=== PATIENT | female | born 1970 | race Caucasian/White ===

== ENCOUNTER → 2023-12-23 12:50 | Outpatient (REF) | payer BC, SELFPAY | LOC: HWRAD 12:50 | PROVIDERS: ATTENDING PHYSICIAN Obstetrics & Gynecology; FAMILY PHYSICIAN Nurse Practitioner Primary Care; REFERRING PHYSICIAN Surgery | DX: I89.0 Lymphedema, not elsewhere classified (principal); R10.2 Pelvic and perineal pain; Z80.41 Family history of malignant neoplasm of ovary | CPT/HCPCS: 76536; 76830; 76856 ==

== ENCOUNTER 2024-01-30 06:11 | Day surgery (SDC) | payer BC, SELFPAY ==
[2024-01-29 12:44] VITALS: BMI 49.8
[2024-01-29 12:54] LABS: Hematocrit 37.6 % (37.0-47.0); Hemoglobin 12.2 g/dL (12.0-16.0); Mean Corp Hgb Conc. 32.4 g/dL (33.0-37.0); Mean Corpuscular Hgb 30.5 pg (27.0-31.0); Platelet Count 377 10^3/uL (130-400); Red Cell Dist. Width 13.6 % (11.5-14.5); White Blood Cell Count 8.5 10^3/uL (4.8-10.8)
[2024-01-29 13:07] LABS: HCG, Serum Qualitative Screen Negative
[2024-01-29 13:34] LABS: Blood Urea Nitrogen 15 mg/dl (7-17); Calcium 9.3 mg/dl (8.4-10.2); Carbon Dioxide 26 mmol/L (22-30); Chloride 99 mmol/L (98-107); Estimated Creatinine Clearance 102 ml/min; Glucose 95 mg/dl (70-99); Potassium 4.1 mmol/L (3.5-5.1); Sodium 133 mmol/L (135-145); eGFR > 60.00
[2024-01-30] VITALS (12 sets, daily range): BP systolic 93–146; BP diastolic 58–95; BMI 49.8
[2024-01-30] MEDS: NORMOSOL-R 1000 IV (08:03)
[2024-01-30 08:05] LABS: Glucose - Point of Care 95 mg/dl (70-99)
--- NOTE | 2024-01-30 09:51 | W.SUR.PREOP ---
Pre-Operative Surgical Note
-
I have examined this patient prior to the performance of the scheduled procedure.
The patient's condition is unchanged from the time of the current History and
Physical and the patient is able to undergo the scheduled procedure.
[2024-01-30 10:01] LABS: Glucose - Point of Care 87 mg/dl (70-99)
--- NOTE | 2024-01-30 10:53 | W.IMMPOSTOP ---
Addendum entered and electronically signed by Edilma Barney DO 01/30/24 23:19:
specimen: also included endocervical curettings
Original Note:
Surgical Immed Post Op Note
-
Primary Surgeon: Edilma Barney DO
Assisting Surgeon: none
Pre-op Diagnosis: Thickened endometrial lining, uterine fibroid
Post-op Diagnosis: same; endocervical polyp, endometrial polyp, submucosal fibroid
Procedure Performed: Hysteroscopy D&C, endocervical polypectomy, endometrial polypectomy, hysteroscopic fibroid resection
Anesthesia Type: general LMA Dr. Braun
Specimen / Cultures: 1. endocervical polyp 2. endometrial curettings, resected fibroid and polyp
Estimated Blood Loss: 5ml
Fluid deficit: 300ml NSS
Complications:none
Operative Findings: Uterus sounded to 8cm, right tubal ostia seen. Left tubal ostia not seen. Thickened tissue noted left side uterus ? scar tissue obscuring ostia.
Endocervical polyp, endometrial polyp and submucosal fibroid.
Sponge counts correct times 2.
[2024-01-30 12:12] LABS: Glucose - Point of Care 103 mg/dl (70-99)
== END 2024-01-30 13:06 | disposition home or self-care (01) ==
LOC: SDS 06:11
PROVIDERS: ATTENDING PHYSICIAN Obstetrics & Gynecology; FAMILY PHYSICIAN Nurse Practitioner Primary Care
DX: D25.0 Submucous leiomyoma of uterus (principal); N84.1 Polyp of cervix uteri; R93.89 Abnormal findings on diagnostic imaging of other specified body structures
CPT/HCPCS: 58558; 88305; 36415; 80048; 82962; 84703; 85027; 86850; 86900; 86901

== ENCOUNTER → 2024-12-17 13:28 | Outpatient (REF) | payer BC, SELFPAY | LOC: WDC 13:28 | PROVIDERS: ATTENDING PHYSICIAN Obstetrics & Gynecology; FAMILY PHYSICIAN Nurse Practitioner Primary Care | DX: Z12.31 Encounter for screening mammogram for malignant neoplasm of breast (principal) | CPT/HCPCS: 77063; 77067 ==